=== PATIENT | male | born 1975 | race African-American/Black ===

== ENCOUNTER → 2018-02-28 | Outpatient (CLI) | payer OTHER ==
[~2018-02-28] MED LIST: CELE200C PO; CYCL-331 PO; LEVO2.5S7 PO; NAPR375T PO; OMEP20CA9 PO; PRAV20TA2 PO; TRAM50TA PO
--- NOTE | 2018-02-28 16:33 | RAD ---
Abdomen, 2 views, 02/28/2018: HISTORY: Epigastric pain The abdominal gas pattern is unremarkable without evidence of obstruction. No free air is seen in the abdomen. There is no evidence organomegaly. Surgical clips are present in the right upper quadrant and in the lower pelvis bilaterally. IMPRESSION: No acute abdominal abnormality is detected. Electronically signed by: Diony Zuniga MD (02/28/2018 4:30 PM) [facility]
== END | disposition home or self-care (01) ==
LOC: RAD 16:09
PROVIDERS: ATTEND Physician Assistant
DX: R10.84 Generalized abdominal pain (principal)
CPT/HCPCS: 74021

== ENCOUNTER → 2018-03-19 | Outpatient (CLI) | payer OTHER ==
[~2018-03-19] MED LIST changes: +IOHEXOL 240 MG/ML 50ML VIAL. ONE; +IOHEXOL 300 MG/ML 75 ML VIAL. IV ONE
--- NOTE | 2018-03-19 15:27 | RAD ---
CT Abdomen and Pelvis With Intravenous Contrast: History: Left upper quadrant pain and epigastric except for 4 months. Comparison: None. Technique: After administration of oral and intravenous contrast, 75 mL Omnipaque-300, CT of the abdomen and pelvis was performed. Exposure: One or more of the following individualized dose reduction techniques were utilized for this examination: 1. Automated exposure control 2. Adjustment of the mA and/or kV according to patient size 3. Use of iterative reconstruction technique Findings: Liver, spleen, pancreas, and bilateral adrenal glands are unremarkable. Gallbladder is absent. Bilateral kidneys enhance symmetrically. Aortic atherosclerosis is present. No bowel obstruction or inflammation is identified. Appendix is without evidence of inflammation. Urinary bladder is unremarkable. Bilateral inguinal herniorrhaphy changes are seen. Scattered colonic diverticulosis is noted, but no diverticulitis is appreciated. Impression: 1. No acute abnormality identified in the abdomen or pelvis. Electronically signed by: Demarco Steinberg MD (03/19/2018 3:24 PM) [id number]
== END | disposition home or self-care (01) ==
LOC: CT 07:49
PROVIDERS: ATTEND Internal Medicine Gastroenterology
DX: K57.30 Diverticulosis of large intestine without perforation or abscess without bleeding (principal); I70.0 Atherosclerosis of aorta; Z90.49 Acquired absence of other specified parts of digestive tract
CPT/HCPCS: 74177; Q9966; Q9967

== ENCOUNTER → 2018-03-23 | Outpatient (CLI) | payer OTHER ==
[~2018-03-23] MED LIST changes: -IOHEXOL 240 MG/ML 50ML VIAL. ONE; -IOHEXOL 300 MG/ML 75 ML VIAL. IV ONE
--- NOTE | 2018-03-23 12:27 | RAD ---
INDICATION: Epigastric pain. TECHNIQUE: Right upper quadrant ultrasound was performed. Comparison CT is from 4 days earlier. FINDINGS: Much of the pancreas is obscured by bowel gas, visualized portions are within normal limits. IVC is likewise not well evaluated, is patent where visible. There is diffuse increase in echogenicity of the liver. Right hepatic lobe is over 18.7 cm in length. Hepatopedal flow is noted in the portal vein. Gallbladder is reported as surgically absent. Common bile duct measures 5 mm which is within normal limits postcholecystectomy. Right kidney is without hydronephrosis or mass. IMPRESSION: 1. Fatty infiltration of a mildly enlarged liver. 2. Cholecystectomy. Electronically signed by: Cullen Potts MD (03/23/2018 12:23 PM) [facility]
== END | disposition home or self-care (01) ==
LOC: US 07:55
PROVIDERS: ATTEND Internal Medicine Gastroenterology
DX: K76.0 Fatty (change of) liver, not elsewhere classified (principal); R16.0 Hepatomegaly, not elsewhere classified
CPT/HCPCS: 76705

== ENCOUNTER 2021-10-21 15:15 | Emergency (ER) | payer OTHER ==
[~2021-10-21] VITALS: Ht 180.3 cm; Wt 110.0 kg
[~2021-10-21 15:15] MED LIST changes: -CYCL-331 PO; +CYCL10TA19 PO; +OMEP20CA16 PO; -OMEP20CA9 PO
[2021-10-21 15:18] VITALS: BP 144/88
[2021-10-21] MEDS ORDERED: HYDROcodone/APAP 5/325MG 1 TAB TABLET PO ONE (15:30)
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
[2021-10-21] MEDS ORDERED: HYDR-2155 PO (16:50)
== END 2021-10-21 17:18 | disposition home or self-care (01) ==
LOC: ER 15:15
DX: R42 Dizziness and giddiness (principal); M25.562 Pain in left knee; M25.512 Pain in left shoulder; I10 Essential (primary) hypertension; E03.9 Hypothyroidism, unspecified; F10.20 Alcohol dependence, uncomplicated; Z88.2 Allergy status to sulfonamides; Y90.9 Presence of alcohol in blood, level not specified; V98.8XXA Other specified transport accidents, initial encounter; Y93.89 Activity, other specified; Y92.89 Other specified places as the place of occurrence of the external cause; Y99.8 Other external cause status
CPT/HCPCS: 70450; 72125; 73030; 73562; 99284